=== PATIENT | male | born 1940 | race African-American/Black ===

== ENCOUNTER 2018-03-15 12:14 | Observation (INO) ==
[2018-03-15] MEDS ORDERED: TYLENOL PO PRN (12:40)
[2018-03-15] MEDS ORDERED: D50W SYRINGE IV PRN (12:40)
[2018-03-15] MEDS ORDERED: LEVAQUIN 750 MG/D5W 750 MG/150 ML IVPB IV SCH (13:00)
--- NOTE | 2018-03-15 13:46 | EKG Report ---
Test Performed on : 03/15/2018 12:46:01 PM Test Reason : Doctors orders Blood Pressure : / mmHG Vent. Rate : 111 BPM Atrial Rate : 111 BPM P-R Int : 136 ms QRS Dur : 082 ms QT Int : 324 ms P-R-T Axes : 067 050 110 degrees QTc Int : 440 ms Sinus tachycardia. with premature atrial complexes. Minimal voltage criteria for LVH, may be normal variant Nonspecific T wave abnormality Abnormal ECG When compared with ECG of 24-NOV-2015 13:27, No significant change was found Confirmed by Josh WISE, Ricardo Hermosillo ([id number]) on 03/16/2018 10:14:32 AM
[2018-03-15 13:57] LABS: BASO# 0.02 X1000 (0.0-0.2); BASO% 0.1 % (0.0-0.8); HEMATOCRIT 40.9 % (42.0-52.0); HEMOGLOBIN 13.1 g/dL (14.0-18.0); IMM GRAN# 0.13 X1000 (0.0-0.04); IMM GRAN% 0.6 % (0.0-0.5); LYMPH# 1.35 X1000 (1.2-3.4); LYMPH% 6.6 % (20.5-51.1); MCH 26.8 PG (27-31); MCV 83.8 FL (81-99); MONO# 1.44 X1000 (0.11-0.59); MONO% 7.1 % (1.7-9.3); MPV 9.6 FL (7.4-10.4); NEUT# 17.39 X1000 (1.4-6.5); NEUT% 85.6 % (42.2-75.2); PLT 171 X1000 (130-400); RBC 4.88 XMIL (4.7-6.1); RDW 15.2 % (11.5-14.5); WBC 20.33 X1000 (4.8-10.8)
[2018-03-15] MEDS: NS 1,000 ML IV SCH (13:57)
[2018-03-15 14:04] LABS: INR 1.1; PROTIME 15.1 Seconds (11.0-16.0)
[2018-03-15 14:07] LABS: CALCIUM 8.6 mg/dL (8.8-10.2); CREATININE 2.1 mg/dL (0.7-1.2); POTASSIUM 3.7 mmol/L (3.5-5.1); TOTAL BILIRUBIN 0.83 mg/dL (0.20-1.00)
--- NOTE | 2018-03-15 14:52 | Diag Imaging Result Doc PS360 ---
EXAM: CHEST-1 VIEW HISTORY: possible infection TECHNIQUE: Portable chest COMPARISON: None. FINDINGS: The lungs are well expanded. The heart is not enlarged. The vessels are not distended. There are no infiltrates. No effusion identified. IMPRESSION: No pneumonia. Electronically signed by Keyur Goemz 03/15/2018 2:49 PM
[2018-03-15 15:10] LABS: LYMPHS 5 % (21-51); MONO 2 % (1-9); SEGS 93 % (42-75)
--- NOTE | 2018-03-15 17:18 | HISTORY AND PHYSICAL ---
CHIEF COMPLAINT: Fever, dysuria. Mr. Reed 77-year-old gentleman with known case of hypertension, hyperlipidemia, BPH, diabetes mellitus, osteoarthritis. The patient was in his usual state of health last Sunday, started having problem with urination which patient describes as mild dysuria but since yesterday patient have problems voiding and dysuria. The patient also developed fever and chills. The patient claims he was able to void only few drops of urine. The patient did have a history of enlarged prostate. I evaluated patient in the office. He had 102.1 temperature in my office. With his history of urinary hesitancy, problem voiding, underlying diabetes, I decided to admit the patient for further care. The patient also had mild diarrhea but no blood or mucus in the stool. No gross hematuria. Denied any typical chest pain, palpitation, orthopnea or PND. No unusual cough, expectoration, or hemoptysis. Denied any sore throat. No runny nose, stuffy nose, sinus drainage. The patient does have arthritic pain in the knee, at times in the lower back. Unquantified weight loss. No skin rash. No further history available at this time. ALLERGIES: No known drug allergy. HOME MEDICATIONS: Include Glucophage, Singulair, nifedipine, Flomax, Dyazide. I do not think we have updated list of patient's medicine. PAST MEDICAL HISTORY: Longstanding hypertension, hyperlipidemia, NIDDM, gastritis and reflux disease, osteoarthritis, chronic kidney disease, BPH. PERSONAL HISTORY: Single. Nonsmoker. Denied alcohol or substance abuse. Fairly independent in activities of daily living. FAMILY HISTORY: Significant for aunt with diabetes. REVIEW OF SYSTEMS: As per HPI otherwise unobtainable. PHYSICAL EXAMINATION: GENERAL: Elderly gentleman in mild distress. VITAL SIGNS: Blood pressure 130/68, pulse 120, respirations 20, temperature 100 degrees. SKIN: Senile turgor. No rash or petechiae. HEENT: Head atraumatic, normocephalic. [place] conjunctivae. Anicteric sclerae. Extraocular muscle movement normal. Fundus cannot be penetrated. Good oral hygiene. No tonsillopharyngeal congestion or exudate. Ears and nose benign. NECK: Supple. No JVD, thyromegaly or lymphadenopathy. CHEST: Bilateral good air entry present. No rales or rhonchi. CARDIOVASCULAR: S1 and S2 heard. Tachycardia. No gallop or thrill. ABDOMEN: Soft, globular. Bowel sounds present. Mild hypogastric tenderness. No guarding or rigidity. EXTREMITIES: No cyanosis, clubbing. No acute DVT. Peripheral pulsation intact. The patient does have significant arthritis both the knees. 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 No focalities. LABORATORY DATA: WBC count 20.33, hemoglobin 13.1, hematocrit 40.9, platelet count 171,000. PT/INR 1.1, PTT 35. BUN was 40, creatinine 2.1. PSA was 168. Chest x-ray revealed no pneumonia. I do not have urine analysis results yet. CONSIDERATION: 1. Patient admitted with febrile illness, has leukocytosis, urinary tract infection. Considering elevated PSA prostatitis is the consideration. 2. Non-insulin dependent diabetes mellitus, acute kidney injury, hypertension, hyperlipidemia, osteoarthritis, gastritis and reflux disease. PLAN: Admit patient, IV hydration, broad-spectrum antibiotics. GI and DVT prophylaxis. Overall plan discussed with the patient and he is in agreement. cc: Marc Rowe MD
[2018-03-15 17:34] LABS: URINE SOURCE CLEAN CATCH
[2018-03-15 17:41] LABS: BILIRUBIN URINE NEGATIVE (NEGATIVE); BLOOD URINE LARGE (NEGATIVE); COLOR YELLOW; GLUCOSE URINE NEGATIVE (NEGATIVE); KETONE URINE NEGATIVE (NEGATIVE); LEUKOCYTES URINE MODERATE (NEGATIVE); NITRITE URINE POSITIVE (NEGATIVE); PROTEIN URINE 100 mg/dL (NEGATIVE); SP GRAVITY URINE 1.015; TURBIDITY URINE CLEAR (CLEAR); UROBILINOGEN URINE NORMAL (NORMAL)
[2018-03-15 17:42] LABS: UR EPITHELIAL CELLS <10 /HPF (<10); URINE BACTERIA NEGATIVE /HPF; URINE RBC <10 /HPF (<10); URINE WBC 20-40 /HPF (<10)
[2018-03-15] MEDS: HUMALOG SUBQ SCH ×2 (18:33→22:00)
[2018-03-15] MEDS: ROCEPHIN 1 GM in NS 50 ML IV SCH (18:33)
[2018-03-15] MEDS ORDERED: FLOMAX PO SCH (21:00)
[2018-03-15 23:39] LABS: BASO# 0.01 X1000 (0.0-0.2); HEMATOCRIT 37.7 % (42.0-52.0); HEMOGLOBIN 12.3 g/dL (14.0-18.0); IMM GRAN# 0.56 X1000 (0.0-0.04); IMM GRAN% 2.5 % (0.0-0.5); LYMPH# 1.35 X1000 (1.2-3.4); MCH 27.3 PG (27-31); MCHC 32.6 g/dL (33-37); MCV 83.6 FL (81-99); MONO# 2.21 X1000 (0.11-0.59); MONO% 9.9 % (1.7-9.3); MPV 9.9 FL (7.4-10.4); NEUT% 81.6 % (42.2-75.2); PLT 152 X1000 (130-400); RBC 4.51 XMIL (4.7-6.1); RDW 14.9 % (11.5-14.5); WBC 22.43 X1000 (4.8-10.8)
[2018-03-15 23:46] LABS: INR 1.12; PROTIME 15.3 Seconds (11.0-16.0)
[2018-03-15 23:47] LABS: PTT 36.9 Seconds (22.3-41.8)
[2018-03-16 00:06] LABS: ALB/GLOB RATIO 1.4; ALBUMIN 3.8 g/dL (3.5-5.0); CALCIUM 8.3 mg/dL (8.8-10.2); CREATININE 1.7 mg/dL (0.7-1.2); POTASSIUM 3.7 mmol/L (3.5-5.1); TOTAL BILIRUBIN 0.56 mg/dL (0.20-1.00); TOTAL PROTEIN 6.6 g/dL (6.3-8.3)
[2018-03-16] MEDS ORDERED: TYLENOL PO PRN (00:14)
[2018-03-16 00:23] LABS: CK INDEX 0.2 (0.0-2.5); CK-MB 2.73 ng/mL (0.0-5.0)
[2018-03-16] MEDS: NS 1,000 ML IV SCH ×2 (03:30→15:17)
[2018-03-16 04:55] LABS: BASO# 0.02 X1000 (0.0-0.2); BASO% 0.1 % (0.0-0.8); HEMATOCRIT 36.7 % (42.0-52.0); HEMOGLOBIN 11.9 g/dL (14.0-18.0); IMM GRAN# 1.16 X1000 (0.0-0.04); IMM GRAN% 6.6 % (0.0-0.5); LYMPH# 0.95 X1000 (1.2-3.4); LYMPH% 5.4 % (20.5-51.1); MCH 27.1 PG (27-31); MCHC 32.4 g/dL (33-37); MCV 83.6 FL (81-99); MONO# 1.83 X1000 (0.11-0.59); MONO% 10.5 % (1.7-9.3); MPV 9.8 FL (7.4-10.4); NEUT# 13.52 X1000 (1.4-6.5); NEUT% 77.4 % (42.2-75.2); PLT 138 X1000 (130-400); RBC 4.39 XMIL (4.7-6.1); WBC 17.48 X1000 (4.8-10.8)
[2018-03-16 05:08] LABS: ALB/GLOB RATIO 0.8; ALBUMIN 3.2 g/dL (3.5-5.0); CALCIUM 8.3 mg/dL (8.8-10.2); CREATININE 1.6 mg/dL (0.7-1.2); MAGNESIUM 1.7 mg/dL (1.5-2.7); POTASSIUM 3.6 mmol/L (3.5-5.1); TOTAL BILIRUBIN 0.55 mg/dL (0.20-1.00)
[2018-03-16 05:44] LABS: BANDS 4 % (0-1); LYMPHS 14 % (21-51); SEGS 82 % (42-75)
[2018-03-16] MEDS: LOVENOX SUBQ SCH (05:45)
[2018-03-16] MEDS: HUMALOG SUBQ SCH ×4 (06:05→22:36)
--- NOTE | 2018-03-16 08:29 | PROGRESS NOTE ---
DATE: 03/16/2018 SUBJECTIVE: Mr. Vang is doing better. The patient had fever up to 101.4. Still has urinary hesitancy, mild dysuria. No diarrhea. No unusual cough or expectoration. He denied chest pain or palpitation. No nausea or vomiting. Oral intake is good. OBJECTIVE: Vital Signs: Blood pressure 114/61, pulse 101, respiration 20. Temperature 100.6. Neck supple. No JVD. Lungs: Bilateral good air entry present. CVS: S1 and S2 heard. Abdomen: Soft, globular. Bowel sounds present. 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 Crepitation in both knee joints. LABORATORY DATA: Lab data done today: WBC count 17.48, hemoglobin 11.9, hematocrit 36.7, platelet count 138,000. BUN 40, creatinine 1.6, sodium 135. Urinalysis did reveal nitrite positive, moderate leukocyte, 20 to 40 WBCs suggestive of UTI. PSA was 168. IMPRESSION: The patient presented with 1. Obstructive uropathy. 2. Urinary tract infection. 3. Diabetes mellitus. 4. Hypertension. 5. Acute kidney injury. PLAN: The patient is on broad-spectrum antibiotics. Culture result is pending. The patient is on IV hydration. I am going to get a renal ultrasound. Continue rest of the treatment and close observation. Fall precautions. Overall plan discussed with the patient, and he is in agreement. cc: Marc Rowe MD
[2018-03-16] MEDS: FLOMAX PO SCH ×2 (09:45→20:08)
[2018-03-16] MEDS: ADALAT CC PO SCH (09:45)
[2018-03-16] MEDS: SINGULAIR PO SCH (09:45)
--- NOTE | 2018-03-16 10:50 | Diag Imaging Result Doc PS360 ---
EXAM: US RENAL 2 (RETROPER) COMPLETE HISTORY: obstructive uropathy TECHNIQUE: Renal ultrasound COMPARISON: None. FINDINGS: The right kidney measures 11.2 x 5.5 x 5.0 cm. Normal renal echotexture and cortical thickness. No renal stone or hydronephrosis. No renal mass. The left kidney measures 11.1 x 5.1 x 7.0 cm. Normal renal echotexture and cortical thickness. No renal stone or hydronephrosis. No solid renal mass. IMPRESSION: No hydronephrosis. Electronically signed by Keyur Gomez 03/16/2018 10:47 AM
[2018-03-16] MEDS: ROCEPHIN 1 GM in NS 50 ML IV SCH (16:37)
[2018-03-17] MEDS: NS 1,000 ML IV SCH ×2 (00:38→16:45)
[2018-03-17] MEDS: LOVENOX SUBQ SCH (06:05)
[2018-03-17 06:26] LABS: BASO# 0.01 X1000 (0.0-0.2); BASO% 0.1 % (0.0-0.8); EOS# 0.01 X1000 (0.0-0.7); EOS% 0.1 % (0.0-10.0); HEMATOCRIT 36.5 % (42.0-52.0); HEMOGLOBIN 11.7 g/dL (14.0-18.0); IMM GRAN# 0.06 X1000 (0.0-0.04); IMM GRAN% 0.4 % (0.0-0.5); MCH 26.5 PG (27-31); MCHC 32.1 g/dL (33-37); MCV 82.6 FL (81-99); MONO# 1.29 X1000 (0.11-0.59); MONO% 9.4 % (1.7-9.3); MPV 10.3 FL (7.4-10.4); NEUT# 11.26 X1000 (1.4-6.5); PLT 145 X1000 (130-400); RBC 4.42 XMIL (4.7-6.1); RDW 14.8 % (11.5-14.5); WBC 13.73 X1000 (4.8-10.8)
[2018-03-17] MEDS: HUMALOG SUBQ SCH ×4 (06:33→22:29)
[2018-03-17 06:40] LABS: AGAP 14; ALB/GLOB RATIO 0.7; ALBUMIN 2.9 g/dL (3.5-5.0); ALKALINE PHOSPHATASE 72 U/L (32-122); BUN 38 mg/dL (8-22); CALCIUM 7.8 mg/dL (8.8-10.2); CHLORIDE 99 mmol/L (98-107); COSMO 286; CREATININE 1.2 mg/dL (0.7-1.2); ESTIMATED GFR > 60; GLUCOSE 122 mg/dL (70-104); GOT 38 U/L (10-34); GPT 20 U/L (10-44); POTASSIUM 3.7 mmol/L (3.5-5.1); SODIUM 138 mmol/L (136-145); TCO2 25 mmol/L (25-35); TOTAL BILIRUBIN 0.33 mg/dL (0.20-1.00); TOTAL PROTEIN 6.9 g/dL (6.3-8.3)
[2018-03-17] MEDS ORDERED: LEVAQUIN 750 MG/D5W 750 MG/150 ML IVPB IV SCH (07:45)
--- NOTE | 2018-03-17 08:17 | PROGRESS NOTE ---
DATE: 03/17/2018 SUBJECTIVE: Mr. Vang is feeling better. His dysuria and urinary hesitancy are improving. The patient had mild epigastric discomfort. Low-grade fever of 99.4. No typical chest pain or palpitations. Denied any cough or expectoration. No diarrhea, blood or mucus in the stool. His oral intake is improving. OBJECTIVE: Vital Signs: Noted. Neck: Supple. No JVD. Lungs: Bilateral good air entry present. CVS: S1 and S2 heard. Abdomen: Soft, globular. Bowel sounds present. SENIOR CLINICAL DATA COORDINATOR: Alert, awake. Able to move all 4 limbs. Lab Data: Revealed urine culture grew gram-negative rods. Blood culture is negative. Blood work done today did show improvement in WBC count, hemoglobin 11.7, hematocrit 36.5, platelet count 145,000. BUN 38, creatinine 1.2, blood sugar was 138. PROBLEM LIST: 1. Urinary tract infection, most likely due to prostatitis. I did a renal ultrasound to check for obstructive uropathy and it was benign. 2. Hypertension. 3. Noninsulin-dependent diabetes mellitus. 4. Acute kidney injury. 5. Osteoarthritis. PLAN: The patient is improving slowly. I am going to continue current treatment, close observation. Overall plan discussed with the patient and his daughter. They are in agreement. cc: Marc Rowe MD
[2018-03-17] MEDS: SINGULAIR PO SCH (09:24)
[2018-03-17] MEDS: ADALAT CC PO SCH (09:24)
[2018-03-17] MEDS: FLOMAX PO SCH ×2 (09:25→20:09)
[2018-03-17] MEDS: ROCEPHIN 1 GM in NS 50 ML IV SCH (16:48)
[2018-03-18] MEDS: NS 1,000 ML IV SCH (05:11)
[2018-03-18] MEDS: LOVENOX SUBQ SCH (05:58)
--- NOTE | 2018-03-18 07:35 | DISCHARGE SUMMARY ---
ADMISSION DATE: 03/15/2018 DISCHARGE DATE: 03/18/2018 FINAL DISCHARGE DIAGNOSES: 1. Prostatitis. 2. Urinary tract infection. 3. Acute kidney injury. 4. Hypertension. 5. Noninsulin dependent diabetes mellitus. 6. Hyperlipidemia. 7. Osteoarthritis. HISTORY OF PRESENT ILLNESS: Mr. Vang is a 77-year-old gentleman admitted with dysuria, urinary hesitancy, fever, chills, and mild nausea. The patient was acutely ill. I evaluated patient in the office. Admitted for further care. The patient was treated with IV hydration, symptomatic treatment. His clinical condition gradually improved. The patient is able to urinate well. The patient does have an enlarged prostate. His PSA was 168. Renal ultrasound did not reveal evidence of hydronephrosis. Clinically patient is doing better. Urine culture results reviewed it was resistant to Levaquin but sensitive to Rocephin. The patient remained afebrile. No fever or chills. Oral intake improved. Dysuria improved. Vital signs noted. Neck: Is supple. No JVD. Lungs: Bilateral good air entry present. CVS: S1 and S2 heard. Abdomen: Soft, nontender. Bowel sounds present. No acute DVT clinically. 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 The patient had leukocytosis on admission. WBC count was 22.43. It improved to 13.73. Electrolytes- his BUN 38, creatinine 1.2 which also showed improvement. Blood sugar results reviewed. Urine culture grew E. coli. PSA was 168. Renal ultrasound- no evidence of obstruction or obstructive uropathy. Chest x-ray, no pneumonia. Overall patient is doing better. I am going to give his Rocephin early today. Stop Levaquin. Discharge patient home on Bactrim. Advised him to hold his Glucophage. Plenty of liquids orally. I am going to get him appointment with urologist as an outpatient. Advised him to bring all his medicine for me to review. Increase Flomax 0.4 mg twice a day. In case of more distress, call us back or go to the emergency room. cc: Marc Rowe MD
[2018-03-18 07:36] VITALS: BP 127/69
[2018-03-18] MEDS: FLOMAX PO SCH (08:21)
[2018-03-18] MEDS: SINGULAIR PO SCH (08:21)
[2018-03-18] MEDS: ADALAT CC PO SCH (08:22)
[2018-03-18] MEDS: ROCEPHIN 1 GM in NS 50 ML IV SCH (08:22)
== END 2018-03-18 10:23 | disposition home or self-care (01) ==
LOC: DIRADM → 4N 12:14
PROVIDERS: ADMIT Internal Medicine; ATTEND Internal Medicine
CPT/HCPCS: 71010; 71045; 76770; 80053; 81001; 82550; 82553; 82948; 83605; 83735; 84153; 84484; 85025; 85610; 85730; 87040; 87077; 87088; 87186; 93005; 93010; 94761; A9270; J0696; J1650; J1815; J1956; J7030; XXXXX